=== PATIENT | female | born 1970 | race American Indian/Alaskan Native ===

== ENCOUNTER 2017-01-01 13:14 | Emergency (ER) | payer SELFPAY ==
[2017-01-01 14:34] LABS: Basophils % (Auto) 0.7 % (0.0-1.8); Hematocrit 38.5 % (30.3-42.9); Hemoglobin 12.5 gm/dl (10.1-14.3); Mean Corpuscular HGB Conc 33 % (30-34); Mean Corpuscular Hemoglobin 26 pg (28-32); Mean Corpuscular Volume 81 fl (79-97); Platelet Count 217 K/mm3 (140-440); Red Blood Count 4.74 M/mm3 (3.65-5.03); Red Cell Distribution Width 15.9 % (13.2-15.2); White Blood Count 7.7 K/mm3 (4.5-11.0)
[2017-01-01 16:26] VITALS: BP 136/74
[2017-01-01] MEDS ORDERED: NORCO 10/325 PO ONE (16:30)
--- NOTE | 2017-01-01 16:37 | Emergency Department Report ---
HPI - General Chief Complaint: Vaginal Bleeding Time Seen by Provider: 01/01/17 16:33 - HPI HPI: 46-year-old [place] female coming in with pelvic pain starting on this morning patient had a history of painful menstrual cycles. she states that her pain is accompanied by nausea, vaginal bleeding but no vomiting,urinary symptoms or diarrhea. Patient has not taking any medication at home for his symptoms. She denies any exacerbating factors. She denies any alleviating factors. She denies any recent travel, or unusual foods. She denies any sick contacts. MD Complaint: Pelvic pain -: Gradual Location: [place] area Radiation: none Migration to: no migration Severity scale (0 -10): 5 Quality: sharp Improves With: nothing Associated Symptoms: Nausea, vaginal bleeding. ED Past Medical Hx - Past Medical History Previous Medical History?: Yes Hx Hypertension: Yes ([address] galo for clearance) Hx Diabetes: Yes (2 years) Hx GERD: Yes Hx Arthritis: Yes (r leg and foot) Hx Psychiatric Treatment: Yes (bipolar, schizophrenia) Additional medical history: anxiety. Hernia (for 20 years). high cholesterol. parkinsons - Surgical History Past Surgical History?: Yes Additional Surgical History: c sections; hernia repair - Social History Smoking Status: Current Every Day Smoker Substance Use Type: None - Medications Home Medications: Home Medications Medication Instructions Recorded Confirmed Last Taken Type AtorvaSTATin [Lipitor] 10 mg PO DAILY #30 tablet 10/17/15 Unknown Rx FLUoxetine [PROzac] 10 mg PO QDAY #30 tablet 10/17/15 Unknown Rx Glipizide/Metformin HCl 1 each PO BID #60 tablet 10/17/15 Unknown Rx [glipiZIDE-Metformin 5-500 mg] Lisinopril [Zestril TAB] 5 mg PO DAILY #30 tablet 10/17/15 Unknown Rx risperiDONE [RisperDAL] 4 mg PO QDAY #30 tablet 10/17/15 Unknown Rx Ibuprofen [Motrin] 800 mg PO Q8HR PRN #15 tablet 01/01/17 Unknown Rx ED Review of Systems ROS: Stated complaint: VAGINAL BLEEDING,ABDOMINAL PAIN Other details as noted in HPI Constitutional: denies: chills, fever Eyes: denies: eye pain, eye discharge, vision change Respiratory: denies: cough, shortness of breath, wheezing Cardiovascular: denies: chest pain, palpitations Endocrine: no symptoms reported Gastrointestinal: nausea Genitourinary: other (pelvic pain) Physical Exam - Physical Exam Vital Signs: Vital Signs 01/01/17 01/01/17 14:01 16:24 Temperature 98.4 F 98.2 F Pulse Rate 64 72 Respiratory 18 18 Rate Blood Pressure 140/78 Blood Pressure 136/74 [Left] O2 Sat by Pulse 100 98 Oximetry Physical Exam: Physical Exam: - General Limitations: No Limitations General appearance: alert, in no apparent distress, obese - Head Head exam: Present: atraumatic, normocephalic - Eye Eye exam: Present: normal appearance - ENT ENT exam: Present: mucous membranes moist - Neck Neck exam: Present: normal inspection - Respiratory Respiratory exam: Present: normal lung sounds bilaterally. Absent: respiratory distress - Cardiovascular Cardiovascular Exam: Present: normal rhythm, normal rate. Absent: systolic murmur, diastolic murmur, rubs, gallop : Patient refused - GI/Abdominal GI/Abdominal exam: Present: soft, normal bowel sounds - Extremities Exam Extremities exam: Present: normal inspection - Back Exam Back exam: Present: normal inspection - Neurological Exam Neurological exam: Present: alert, oriented X3 - Psychiatric Psychiatric exam: normal affect and mood - Skin Skin exam: Present: warm, dry, intact, normal color. Absent: rash ED Course Vital Signs 01/01/17 01/01/17 14:01 16:24 Temperature 98.4 F 98.2 F Pulse Rate 64 72 Respiratory 18 18 Rate Blood Pressure 140/78 Blood Pressure 136/74 [Left] O2 Sat by Pulse 100 98 Oximetry ED Medical Decision Making - Lab Data Result diagrams: 01/01/17 14:15 Critical care attestation.: If time is entered above; I have spent that time in minutes in the direct care of this critically ill patient, excluding procedure time. ED Disposition Clinical Impression: Menstrual cramps Disposition: - TO HOME OR SELFCARE Is pt being admited?: No Does the pt Need Aspirin: No Condition: Stable Prescriptions: Ibuprofen [Motrin] 800 mg PO Q8HR PRN #15 tablet PRN Reason: Pain Referrals: PRIMARY MD LEVI [Primary Care Provider] - 3-5 Days JACQUELYN ANDRADE MD [Staff Physician] - 3-5 Days
== END 2017-01-01 16:58 | disposition home or self-care (01) ==
LOC: ED 13:14
DX: N94.6 Dysmenorrhea, unspecified (principal); I10 Essential (primary) hypertension; E11.9 Type 2 diabetes mellitus without complications; K21.9 Gastro-esophageal reflux disease without esophagitis; F31.9 Bipolar disorder, unspecified; F20.9 Schizophrenia, unspecified; F17.200 Nicotine dependence, unspecified, uncomplicated
CPT/HCPCS: 36415; 84702; 85025; 86850; 86900; 86901; 99283

== ENCOUNTER 2017-10-09 18:00 | Emergency (ER) | payer MEDICAID ==
[2017-10-09 18:13] VITALS: BP 138/100
[2017-10-09 19:32] LABS: Basophils # (Auto) 0.1 K/mm3 (0.0-0.1); Basophils % (Auto) 0.7 % (0.0-1.8); Eosinophils # (Auto) 0.1 K/mm3 (0.0-0.4); Eosinophils % (Auto) 0.8 % (0.0-4.3); Hematocrit 40.9 % (30.3-42.9); Hemoglobin 13.4 gm/dl (10.1-14.3); Lymphocytes # (Auto) 1.8 K/mm3 (1.2-5.4); Lymphocytes % (Auto) 19.7 % (13.4-35.0); Mean Corpuscular HGB Conc 33 % (30-34); Mean Corpuscular Hemoglobin 26 pg (28-32); Mean Corpuscular Volume 80 fl (79-97); Monocytes # (Auto) 0.5 K/mm3 (0.0-0.8); Monocytes % (Auto) 5.7 % (0.0-7.3); Platelet Count 227 K/mm3 (140-440); Red Blood Count 5.13 M/mm3 (3.65-5.03); Red Cell Distribution Width 17.7 % (13.2-15.2)
[2017-10-09 19:42] LABS: BUN/Creatinine Ratio 17; Blood Urea Nitrogen 12 mg/dL (7-17); Calcium 9.3 mg/dL (8.4-10.2); Hemolysis Index 52
--- NOTE | 2017-10-10 00:21 | Emergency Department Report ---
ED General Adult HPI - General Chief complaint: Hyperglycemia Stated complaint: HYPERGLYCEMIA Time Seen by Provider: 10/10/17 00:13 Source: patient, EMS Mode of arrival: Stretcher Limitations: No Limitations - History of Present Illness Initial comments: The patient is a very pleasant 47-year-old female who presents to emergency department for hyperglycemia. Patient states she went to a new physician today to get all of her gynecological work done and they did a glucose on her and told her it was elevated and called an ambulance and sent her to the Emergency department. Patient states that she had not taken her diabetic medication prior to going to doctors office. Patient denies any chest pain, shortness of breath, headache. Radiation: non-radiation Severity scale (0 -10): 0 Improves with: none Worsens with: none Associated Symptoms: denies other symptoms Treatments Prior to Arrival: none - Related Data Previous Rx's Medication Instructions Recorded Last Taken Type AtorvaSTATin [Lipitor] 10 mg PO DAILY #30 tablet 10/17/15 Unknown Rx FLUoxetine [PROzac] 10 mg PO QDAY #30 tablet 10/17/15 Unknown Rx Glipizide/Metformin HCl 1 each PO BID #60 tablet 10/17/15 Unknown Rx [glipiZIDE-Metformin 5-500 mg] Lisinopril [Zestril TAB] 5 mg PO DAILY #30 tablet 10/17/15 Unknown Rx risperiDONE [RisperDAL] 4 mg PO QDAY #30 tablet 10/17/15 Unknown Rx Ibuprofen [Motrin] 800 mg PO Q8HR PRN #15 tablet 01/01/17 Unknown Rx Allergies Allergy/AdvReac Type Severity Reaction Status Date / Time tomato Allergy Hives Verified 07/30/14 15:00 ED Review of Systems ROS: Stated complaint: HYPERGLYCEMIA Other details as noted in HPI Comment: All other systems reviewed and negative Constitutional: denies: chills, fever Eyes: denies: eye pain, eye discharge, vision change ENT: denies: ear pain, throat pain Respiratory: denies: cough, shortness of breath, wheezing Cardiovascular: denies: chest pain, palpitations Endocrine: no symptoms reported Gastrointestinal: denies: abdominal pain, nausea, diarrhea Genitourinary: denies: urgency, dysuria, discharge Musculoskeletal: denies: back pain, joint swelling, arthralgia Skin: denies: rash, lesions Neurological: denies: headache, weakness, paresthesias Psychiatric: denies: anxiety, depression Hematological/Lymphatic: denies: easy bleeding, easy bruising ED Past Medical Hx - Past Medical History Hx Hypertension: Yes ([address] galo for clearance) Hx Diabetes: Yes (2 years) Hx GERD: Yes Hx Arthritis: Yes (r leg and foot) Hx Psychiatric Treatment: Yes (bipolar, schizophrenia) Additional medical history: anxiety. Hernia (for 20 years). high cholesterol. parkinsons - Surgical History Additional Surgical History: c sections; hernia repair - Social History Smoking Status: Current Every Day Smoker Substance Use Type: None - Medications Home Medications: Home Medications Medication Instructions Recorded Confirmed Last Taken Type AtorvaSTATin [Lipitor] 10 mg PO DAILY #30 tablet 10/17/15 Unknown Rx FLUoxetine [PROzac] 10 mg PO QDAY #30 tablet 10/17/15 Unknown Rx Glipizide/Metformin HCl 1 each PO BID #60 tablet 10/17/15 Unknown Rx [glipiZIDE-Metformin 5-500 mg] Lisinopril [Zestril TAB] 5 mg PO DAILY #30 tablet 10/17/15 Unknown Rx risperiDONE [RisperDAL] 4 mg PO QDAY #30 tablet 10/17/15 Unknown Rx Ibuprofen [Motrin] 800 mg PO Q8HR PRN #15 tablet 01/01/17 Unknown Rx ED Physical Exam - General Limitations: No Limitations General appearance: alert, in no apparent distress - Head Head exam: Present: atraumatic, normocephalic - Eye Eye exam: Present: normal appearance - ENT ENT exam: Present: mucous membranes moist - Neck Neck exam: Present: normal inspection - Respiratory Respiratory exam: Present: normal lung sounds bilaterally. Absent: respiratory distress - Cardiovascular Cardiovascular Exam: Present: regular rate, normal rhythm. Absent: systolic murmur, diastolic murmur, rubs, gallop - GI/Abdominal GI/Abdominal exam: Present: soft, normal bowel sounds - Extremities Exam Extremities exam: Present: normal inspection - Back Exam Back exam: Present: normal inspection - Neurological Exam Neurological exam: Present: alert, oriented X3, CN II-XII intact, normal gait. Absent: motor sensory deficit - Psychiatric Psychiatric exam: Present: normal affect, normal mood - Skin Skin exam: Present: warm, dry, intact, normal color. Absent: rash ED Course Vital Signs 10/09/17 18:09 Temperature 98.5 F Pulse Rate 87 Respiratory 18 Rate Blood Pressure 138/100 O2 Sat by Pulse 98 Oximetry ED Medical Decision Making - Lab Data Result diagrams: 10/09/17 19:10 10/09/17 19:10 - Medical Decision Making Discussed results with the patient and she states she will take her insulin as she gets home. Patient politely declined my offer to give her insulin here. Critical care attestation.: If time is entered above; I have spent that time in minutes in the direct care of this critically ill patient, excluding procedure time. ED Disposition Clinical Impression: Hyperglycemia without ketosis Disposition: DC-01 TO HOME OR SELFCARE Is pt being admited?: No Does the pt Need Aspirin: No Condition: Stable Instructions: Diabetic Hyperglycemia (ED) Additional Instructions: Return if symptoms become worse Referrals: PRIMARY CAREMD [Primary Care Provider] - 3-5 Days [facility] [Outside] - 3-5 Days [facility] [Outside] - 3-5 Days JESENIA COLIN MD [Staff Physician] - 3-5 Days Time of Disposition: 00:19
== END 2017-10-10 01:14 | disposition home or self-care (01) ==
LOC: ED 18:00
DX: E11.65 Type 2 diabetes mellitus with hyperglycemia (principal); I10 Essential (primary) hypertension; K21.9 Gastro-esophageal reflux disease without esophagitis; F17.200 Nicotine dependence, unspecified, uncomplicated
CPT/HCPCS: 36415; 80048; 82805; 82962; 85025